=== PATIENT | female | born 1970 | race Hispanic/Latino ===

== ENCOUNTER 2018-10-11 15:30 | Outpatient (CLI) | payer BC | END 2018-10-11 15:31 | disposition home or self-care (01) | LOC: BICMAMMO 15:30 | PROVIDERS: ATTEND Obstetrics & Gynecology | DX: Z12.31 Encounter for screening mammogram for malignant neoplasm of breast (principal); Z98.890 Other specified postprocedural states | CPT/HCPCS: 77063; 77067 ==

== ENCOUNTER 2018-10-17 15:44 | Outpatient (CLI) | payer BC ==
[2018-10-17 17:28] LABS: Hemoglobin 13.4 g/dL (12.0-16.0); Mean Corpuscular HGB CONC 32.7 g/dL (32.0-36.0); Mean Corpuscular Hemoglobin 30.1 pg (27.0-31.0); Mean Corpuscular Volume 91.9 fL (78.0-98.0); Platelet Count 352 thou/uL (130-400); RBC Distribution Width 11.9 % (11.5-14.5); Red Blood Cell (RBC) Count 4.44 mill/uL (4.20-5.40); White Blood Cell (WBC) Count 12.4 thou/uL (4.8-10.8)
== END 2018-10-17 15:45 | disposition home or self-care (01) ==
LOC: LABBT 15:44
PROVIDERS: ATTEND Obstetrics & Gynecology
DX: Z01.812 Encounter for preprocedural laboratory examination (principal); D25.9 Leiomyoma of uterus, unspecified; N94.10 Unspecified dyspareunia
CPT/HCPCS: 85027; 86850; 86900; 86901

== ENCOUNTER 2018-10-17 16:30 | Inpatient (IN) | payer BC ==
[2018-10-17 16:26] VITALS: BMI 28.1
--- NOTE | 2018-10-22 16:39 | HP ---
REASON FOR ADMISSION: Fibroids, menorrhagia, status post of ablation, desiring hysterectomy. SCHEDULED PROCEDURE: Total laparoscopic hysterectomy, bilateral salpingectomy, probable retrieval bag morcellation. HISTORY OF PRESENT ILLNESS: Ms. Burt is a 47-year-old G0 who [place] in [place] with pain, bleeding, and fibroid. She is status post ablation. She had a negative Pap smear. Ultrasound revealed multiple fibroids with overall uterine measurement of 10.67 x 7.54 cm. She had a fundal 6 cm fibroid, anterior 4 cm fibroid, and other small fibroids. The right and left ovary appeared normal. She desires definitive surgical management. INFORMATION SUPPORT PROJECT MANAGER HISTORY: As noted, nulliparous. No history of STDs. PAST MEDICAL HISTORY: Significant for a history of seizure disorder. She has not had one in over a year and no etiology of her seizure disorder had been found. PAST SURGICAL HISTORY: Surgeries include endometrial ablation, myomectomy, appendectomy, orthopedic surgery, and appendectomy. MEDICATIONS: Include, 1. Aspirin. 2. Labetalol. 3. Cyclobenzaprine. 4. Diflucan. 5. Synthroid. 6. Norethindrone. 7. Spironolactone. ALLERGIES: ERYTHROMYCIN. SOCIAL HISTORY: Denies tobacco, alcohol, or IV drug abuse. FAMILY HISTORY: Noncontributory. REVIEW OF SYSTEMS: Noncontributory. PHYSICAL EXAMINATION: GENERAL: White female, 5 feet 7 inches, 185 pounds, BMI 28. Blood pressure 116/74, pulse 94, respirations 18. HEENT: Within normal limits. LUNGS: Clear to auscultation bilaterally. HEART: Regular rhythm. BREASTS: No masses bilaterally. ABDOMEN: Soft and nontender. Palpable fibroids approximately 12 week size. Vulva without lesions. Vagina without discharge. Cervix nulliparous. Uterus irregular, anteverted, 10 to 12 week size. Adnexa, no masses bilaterally. EXTREMITIES: Without clubbing, cyanosis, or edema. IMPRESSION: Fibroids with menorrhagia, pelvic pain at age 47, status post ablation with persistent symptoms. PLAN: Total laparoscopic hysterectomy, bilateral salpingectomy, no oophorectomy secondary to no family history of ovarian or breast malignancy. We will likely use GelPOINT and retrieval bag because of specimen size. We will administer appropriate antibiotic and DVT prophylaxis. Job ID: [id number]
[2018-10-23] MEDS ORDERED: Gabapentin 300 MG CAP ONE (06:53)
[2018-10-23] MEDS ORDERED: Famotidine/PF 20 mg/2ml Vial ONE (06:53)
[2018-10-23] MEDS ORDERED: CeleCOXIB 100 MG CAP ONE (06:53)
[2018-10-23] MEDS ORDERED: Bupivacaine HCl 0.5%/Epinephrine 1:200,000/PF 30 ml Vial ONE (07:56)
[2018-10-23] MEDS ORDERED: Midazolam HCl 2 mg/2 ml Vial ONE (08:30)
[2018-10-23] MEDS ORDERED: Fentanyl 100 MCG/2 ML VIAL ONE ×2 (08:40→11:20)
[2018-10-23] MEDS ORDERED: Promethazine HCl 25 MG/ML VIAL SLOW IVP PRN (11:08)
[2018-10-23] MEDS ORDERED: Promethazine HCl 25 MG/ML VIAL IM PRN ×2 (11:08→11:56)
[2018-10-23] MEDS ORDERED: Ondansetron HCl/PF 4 MG/2 ML Vial IVP PRN (11:08)
[2018-10-23] MEDS ORDERED: Rocuronium Bromide 10 MG/ML (10ML VIAL) ONE (11:28)
[2018-10-23] MEDS ORDERED: Ondansetron PF 4 MG/2 ML Vial ONE (11:28)
[2018-10-23] MEDS ORDERED: PROPOFOL 200 MG/20 ML VIAL ONE (11:28)
[2018-10-23] MEDS ORDERED: Dexamethasone 20 MG/5 ML VIAL ONE (11:28)
[2018-10-23] MEDS ORDERED: Ketorolac Tromethamine 30 MG/ML VIAL ONE (11:28)
[2018-10-23] MEDS ORDERED: Lidocaine 1% PF 5 ML VIAL ONE (11:28)
[2018-10-23] MEDS ORDERED: Glycopyrrolate 0.2 MG/ML 5 ML SYRINGE ONE (11:28)
[2018-10-23] MEDS ORDERED: Ondansetron PF 4 MG/2 ML Vial IVP PRN (11:56)
[2018-10-23] MEDS ORDERED: diphenhydrAMINE 25 MG CAP PO PRN (11:56)
[2018-10-23] MEDS ORDERED: Morphine 4 MG/ML VIAL SLOW IVP PRN (11:56)
[2018-10-23] MEDS ORDERED: Zolpidem Tartrate 5 MG TAB PO PRN (11:56)
[2018-10-23] MEDS ORDERED: Acetaminophen 1,000 MG in Premix Bag 1 BAG IVPB SCH ×2 (12:00→18:00)
[2018-10-23] MEDS ORDERED: Morphine 4 MG/ML VIAL ONE (12:06)
--- NOTE | 2018-10-23 12:30 | OP ---
DATE OF PROCEDURE: 10/23/2018 PREOPERATIVE DIAGNOSES: 1. Dysmenorrhea. 2. Pelvic pain. 3. Fibroids. POSTOPERATIVE DIAGNOSES: 1. Dysmenorrhea. 2. Pelvic pain. 3. Fibroids. PROCEDURES PERFORMED: 1. Total laparoscopic hysterectomy with bilateral salpingectomy with da Elmer robot. 2. Extracorporeal transabdominal morcellation. ASSISTANTS: 1. Frandy Ardon DO, MS. 2. Venecia Reza PA-C. ANESTHESIA: General endotracheal, Clive Rapp CRNA. MEDICATIONS: 2 g Ancef. PREINCISION: DVT prophylaxis with SCDs. DRAINS: Whitlock to gravity with clear urine. OPERATIVE FINDINGS: 1. Approximately 12-week size uterus with multiple leiomyoma, anterior and posterior subserosal approximately 6 to 7 cm each. 2. Normal-appearing tubes and ovaries bilaterally. 3. Hemostasis, clear urine. COUNTS: Correct at the end of the procedure. DISPOSITION: Recovery room in good condition. DESCRIPTION OF PROCEDURE: After obtaining appropriate informed consent, the patient was taken to the operating room, where general endotracheal anesthesia was achieved without difficulty. The patient was prepped and draped in the dorsal lithotomy position in David stirrups. Bladder drained with clear urine with a Whitlock catheter. Sliding speculum was placed in the vagina. Cervix was identified, grasped with single-tooth tenaculum, sounded to 8 cm, dilated up to appropriate level and a SINDY manipulator with a 3.5 cervical manager harbor and an 8-cm obturator was placed without difficulty. Speculum and tenaculum were removed and operative vacuum drum drier operator changed her clothes turned attention to abdominal portion of procedure. A 5 mL of Marcaine was injected above the umbilicus and a 12-mm skin incision was made. Veress needle was placed inside the abdominal cavity, insufflation was carried out with carbon dioxide for a maximum pressure of 15, volume approximately 3.5 L. A 12-mm non-cutting trocar was introduced into the abdominal cavity. The patient was placed in Trendelenburg position and findings as noted in the operative findings were noted. The right and left lateral da Elmre robot ports were placed under direct visualization as well as an 11-mm esol teacher assistant port in the right upper quadrant. At this point in time, a cutdown was carried out onto the 12-mm supraumbilical port for approximately 2.5 cm skin incision, a 2.5 cm fascial incision. The trocar was removed and the GelPort applied. medical GelPOINT port was placed. Applied medical retrieval bag was placed in the abdominal cavity and then the 12-mm trocar was reintroduced through the GelPOINT. Da Elmer robot was docked with monopolar scissors in the vacuum drum drier operator's right hand and bipolar fenestrated forceps in the left. The left fallopian tube was mobilized. The mesosalpinx coagulated, transected, and removed from the abdominal cavity. Utero-ovarian ligament on the patient's left was coagulated and transected through the round and the broad down to the level of the internal cervical os. The vesicouterine peritoneum was incised sharply off the anterior lower uterine segment. Significant distortion was noted bilaterally because of the fibroids, however, with assistance intraoperatively, good exposure in maintenance of normal anatomy was achieved. Ureters were identified and noted to be well lateral to the operative field. Thus, after incising the vesicouterine peritoneal fold, the bladder was dissected off the lower cervix and upper vagina. Skeletonization of the uterine vessels on the left carried out and these were coagulated and transected. Attention was turned to the right where the same identical procedure was carried out removing the fallopian tube, coagulating and transecting the utero-ovarian broad, round, and down to the level internal cervical os. Again, skeletonization of the uterine vessels was carried out. They were coagulated and transected. Posterior of the cul-de-sac, a Dariel was entered at 6 o'clock and extended from 6 o'clock to 3 o'clock and 6 o'clock to 9 o'clock anteriorly. The vagina was entered at 12 o'clock and extended from 12 o'clock to 3 o'clock and 12 o'clock to 9 o'clock. Specimen was detached. Because of the large size of the uterus removal through the vagina, it was not going to be possible. The SINDY balloon was pulled down and the specimen was pulled off the SINDY manipulator. The SINDY manipulator was removed from the vagina and the SINDY vaginal obturation balloon was pulled off the manipulator, then placed in the vagina inflated to maintain pneumoperitoneum. Suction and irrigation were carried out. The cuff was noted to be dry and was closed using a running continuous 0 PDS Stratafix suture running from the right to the left and then back to the right in a 2-layer closure technique. Suction and irrigation were carried out. Good hemostasis was noted. Again, ureters were identified and to be well lateral. The bladder was noted to be intact without abnormality with clear urine. Tisseel was applied across all surgical carvajal. After this was done, the retrieval bag was pulled in the pelvis and the stay sutures keeping it shut were removed. The uterus was placed in the retrieval bag and then the retrieval bag string was pulled out through the GelPort. DA Elmer instruments were removed and the da Elmer robot undocked. The patient levelled and the retrieval bag pulled out through the neck of the GelPOINT. Serial morcellation was carried out for approximately 30 to 45 minutes morcellating the specimen, elevating it to avoid trauma to the underlying viscera and with care throughout. The entire specimen was morcellated again without any evidence of trauma to the underlying viscera. Retrieval bag was removed and was noted to be intact without evidence of damage or laceration. The small applied medical Jeremiah O used for the GelPort was removed. The fascia identified and closed using a running continuous 0 Vicryl suture on a UR5 needle. All trocars had been removed and the skin was reapproximated x4 using 4-0 Monocryl and Dermabond in a subcuticular manner and the vagina inspected and noted to be without laceration. Clear urine was noted. The patient was awakened and extubated to Recovery Room in good condition. Job ID: [id number]
[2018-10-23] MEDS ORDERED: Morphine 2 MG/ML SYRINGE SLOW IVP PRN ×2 (12:40→13:06)
[2018-10-23] MEDS: Lactated Ringer's 1,000 ML IV SCH ×3 (12:58→21:47)
[2018-10-23] MEDS: Morphine 4 MG/ML VIAL SLOW IVP PRN ×2 (13:34→15:35)
[2018-10-23] MEDS: Acetaminophen 1,000 MG in Premix Bag 1 BAG IVPB SCH ×2 (15:31→20:57)
[2018-10-23] MEDS: Simethicone Chewable 80 MG TAB PO PRN (16:56)
[2018-10-23] MEDS: HYDROcodone/Acetaminophen 10/325 mg Tablet PO PRN (16:56)
[2018-10-23] MEDS: CeleCOXIB 100 MG CAP PO SCH (20:56)
[2018-10-23] MEDS: Gabapentin 300 MG CAP PO SCH (20:57)
[2018-10-24] MEDS: HYDROcodone/Acetaminophen 10/325 mg Tablet PO PRN ×2 (02:56→08:23)
[2018-10-24] MEDS: Acetaminophen 1,000 MG in Premix Bag 1 BAG IVPB SCH (02:58)
[2018-10-24] MEDS: Simethicone Chewable 80 MG TAB PO PRN (03:29)
[2018-10-24] MEDS ORDERED: Levothyroxine Sodium 25 MCG TAB PO SCH (06:00)
[2018-10-24 06:09] LABS: Mean Corpuscular HGB CONC 32.4 g/dL (32.0-36.0); Mean Corpuscular Hemoglobin 30.1 pg (27.0-31.0); Mean Corpuscular Volume 92.8 fL (78.0-98.0); Mean Platelet Volume 8.1 fL (7.4-10.4); Platelet Count 280 thou/uL (130-400); RBC Distribution Width 11.9 % (11.5-14.5); Red Blood Cell (RBC) Count 3.65 mill/uL (4.20-5.40); White Blood Cell (WBC) Count 14.3 thou/uL (4.8-10.8)
[2018-10-24] MEDS ORDERED: Spironolactone 100 MG TAB PO SCH (08:00)
[2018-10-24 08:03] VITALS: BP 102/54; TEMP 98.6
[2018-10-24] MEDS: CeleCOXIB 100 MG CAP PO SCH (08:23)
[2018-10-24] MEDS: Gabapentin 300 MG CAP PO SCH (08:25)
--- NOTE | 2018-10-24 08:49 | DIS ---
DATE OF ADMISSION: 10/23/2018 DATE OF DISCHARGE: 10/24/2018 PRINCIPAL PROCEDURES: Total laparoscopic hysterectomy with bilateral salpingectomy, extracorporeal uterine morcellation for fibroids. HISTORY OF PRESENT ILLNESS: The patient underwent the aforementioned procedure on 10/23. She had minimal blood loss. Postoperatively, the patient has done well, voiding with ease, tolerating p.o. Her incisions are intact and dry. Her lungs are clear to auscultation bilaterally and her abdomen is soft and nontender. Laboratory; hematocrit went from 40 to 34 percent postoperatively. She has good void volumes and is ambulating with ease. The patient is discharged home on [place] and Zofran with follow up at [facility] [place] in 6 weeks, and will follow Pathology at that time. Job ID: [id number]
[2018-10-24] MEDS ORDERED: Thyroid 60 MG TAB PO SCH (09:00)
[2018-10-24] MEDS ORDERED: Aspirin 81 mg Enteric Coated Tablet PO SCH (09:00)
[2018-10-24] MEDS ORDERED: Thyroid 30 MG TAB PO SCH (09:00)
== END 2018-10-24 10:51 | disposition home or self-care (01) | DRG 743 ==
LOC: SURG A 10-23 06:28 → 3SE 10-23 11:53
PROVIDERS: ADMIT Obstetrics & Gynecology; ATTEND Obstetrics & Gynecology
PROC: 0UT94ZZ Resection of Uterus, Percutaneous Endoscopic Approach (ICD-10-PCS; principal; 2018-10-23)
PROC: 0UT74ZZ Resection of Bilateral Fallopian Tubes, Percutaneous Endoscopic Approach (ICD-10-PCS; 2018-10-23)
PROC: 8E0W4CZ Robotic Assisted Procedure of Trunk Region, Percutaneous Endoscopic Approach (ICD-10-PCS; 2018-10-23)
DX: D25.2 Subserosal leiomyoma of uterus (principal); N92.0 Excessive and frequent menstruation with regular cycle; N94.6 Dysmenorrhea, unspecified; G40.909 Epilepsy, unspecified, not intractable, without status epilepticus; Z90.49 Acquired absence of other specified parts of digestive tract; Z98.890 Other specified postprocedural states; Z88.1 Allergy status to other antibiotic agents
CPT/HCPCS: 36415; 36416; 85027; J0131; J0670; J1100; J1885; J2001; J2250; J2270; J2405; J2704; J3010; Q0163; S0028

== ENCOUNTER 2019-10-13 16:13 | Outpatient (CLI) | payer BC ==
--- NOTE | 2019-10-14 14:40 | MMO ---
Bilateral MAMMO Bilat Screen [facility]. CLINICAL HISTORY: Patient is 48 years old and is seen for screening. The patient has no family history of breast cancer. The patient has no personal history of cancer. The patient has a history of left Ultrasound Guided Core Biopsy in 2018 - benign. VIEWS: The views performed were: bilateral craniocaudal with tomosynthesis and bilateral mediolateral oblique with tomosynthesis. FILMS COMPARED: The present examination has been compared to prior imaging studies performed at [place] on 10/11/2018. This study has been interpreted with the assistance of computer-aided detection. MAMMOGRAM FINDINGS: The breasts are heterogeneously dense, which could obscure a lesion on mammography. There is a biopsy clip seen in the left breast. There are no suspicious masses, suspicious calcifications, or new areas of architectural distortion. IMPRESSION: THERE IS NO MAMMOGRAPHIC EVIDENCE OF MALIGNANCY. A ROUTINE FOLLOW-UP MAMMOGRAM IN 1 YEAR IS RECOMMENDED. THE RESULTS OF THIS EXAM WERE SENT TO THE PATIENT. ACR BI-RADS Category 2 - Benign finding MAMMOGRAPHY NOTE: 1. A negative mammogram report should not delay a biopsy if a dominant of clinically suspicious mass is present. 2. Approximately 10% to 15% of breast cancers are not detected by mammography. 3. Adenosis and dense breasts may obscure an underlying neoplasm. Reported by: CARL MARLEY MD Electonically Signed: [id number]
== END 2019-10-13 16:14 | disposition home or self-care (01) ==
LOC: BICMAMMO 16:13
PROVIDERS: ATTEND Obstetrics & Gynecology
DX: Z12.31 Encounter for screening mammogram for malignant neoplasm of breast (principal); Z91.89 Other specified personal risk factors, not elsewhere classified
CPT/HCPCS: 77063; 77067

== ENCOUNTER 2021-06-01 13:45 | Emergency (ER) | payer BC ==
[2021-06-01] MEDS ORDERED: Acetaminophen 500 MG TAB ONE (14:18)
[2021-06-01 14:49] LABS: #Eosinphils 0.1 thou/uL (0.0-0.7); #Lymphocytes 1.8 thou/uL (1.20-3.40); #Monocytes 0.7 thou/uL (0.11-0.59); #Neutrophils 8.3 thou/uL (1.40-6.50); %Basophils 0.4 % (0.0-1.0); %Eosinophils 1.1 % (0.0-10.0); %Lymphocytes 16.8 % (21.0-51.0); %Neutrophils 75.7 % (42.0-75.0); Hemoglobin 12.5 g/dL (12.0-16.0); Mean Corpuscular Hemoglobin 30.2 pg (27.0-31.0); Mean Platelet Volume 8.1 fL (7.4-10.4); Platelet Count 290 thou/uL (130-400); RBC Distribution Width 12.5 % (11.5-14.5); Red Blood Cell (RBC) Count 4.13 mill/uL (4.20-5.40)
[2021-06-01 15:08] LABS: ALT (SGPT) 12 U/L (8-55); AST (SGOT) 12 U/L (5-34); Alkaline Phosphatase 75 U/L (40-110); Anion Gap 10 mmol/L (10-20); BUN (Urea Nitrogen) 12 mg/dL (9.8-20.1); Bilirubin, Total 0.3 mg/dL (0.2-1.2); Calc. Creatinine Clearance 0 mL/min (70-130); Carbon Dioxide 25 mmol/L (22-29); Chloride 105 mmol/L (98-107); Globulin 3.1 g/dL (2.4-3.5); Glucose 130 mg/dL (70-105); Potassium 4.4 mmol/L (3.5-5.1); Protein, Total 7.1 g/dL (6.0-8.3); Sodium 136 mmol/L (136-145)
== END 2021-06-01 15:46 | disposition home or self-care (01) ==
LOC: ERS 13:45
DX: R56.9 Unspecified convulsions (principal); E07.9 Disorder of thyroid, unspecified
CPT/HCPCS: 36415; 70450; 80053; 85025

== ENCOUNTER 2021-06-27 07:53 | Outpatient (CLI) | payer BC | END 2021-06-27 07:54 | disposition home or self-care (01) | LOC: TBSIIMAG 07:53 | PROVIDERS: ATTEND Psychiatry & Neurology Neurology | DX: R56.9 Unspecified convulsions (principal) | CPT/HCPCS: 70551 ==